=== PATIENT | male | born 2005 | race African-American/Black ===

== ENCOUNTER 2023-12-04 19:44 | Emergency (ER) | payer SELFPAY ==
[~2023-12-04] VITALS: Ht 182.9 cm; Wt 101.0 kg
[2023-12-04 20:13] VITALS: O2SAT 98
[2023-12-04] MEDS: RIVAROXABAN 15 MG TABLET PO STA (22:16)
[2023-12-04] MEDS ORDERED: XAR15 MT (22:20)
[2023-12-04] MEDS ORDERED: RIVA20TA MT (22:20)
[2023-12-04 22:52] VITALS: BP 138/62; PULSE 95; RESP 16; TEMP 98.5
== END 2023-12-04 22:53 | disposition home or self-care (01) ==
LOC: ER 19:44
DX: I82.401 Acute embolism and thrombosis of unspecified deep veins of right lower extremity (principal)
CPT/HCPCS: 93971; 99284; Z7610 ×3

== ENCOUNTER 2023-12-23 20:05 | Emergency (ER) | payer MEDICAID, OTHER ==
[~2023-12-23] VITALS: Ht 182.9 cm; Wt 102.0 kg
[2023-12-23 20:13] VITALS: O2SAT 97
[2023-12-23 21:40] LABS: BASOPHILS % 0.6 % (0.0-2.0); HEMOGLOBIN. 15.2 g/dL (14.0-18.0); LYMPHOCYTES % 31.5 % (20.0-50.0); MEAN CORPUSCULAR HGB CONC 32.9 g/dL (31.0-37.0); MEAN CORPUSCULAR VOLUME 91.3 fL (80.0-94.0); MEAN PLATELET VOLUME 9.8 fl (7.4-10.4); MONOCYTES % 6.6 % (2.0-8.0); NEUTROPHILS % 59.3 % (40.0-76.0); PLATELET 210 x1000/uL (130-400); RED BLOOD CELL COUNT 5.04 mill/uL (4.7-6.1); RED CELL DISTRIBUTION WIDTH 13.1 % (11.6-14.6); WHITE BLOOD COUNT 6.4 x1000/uL (4.5-11.0)
[2023-12-23 21:46] LABS: CHLORIDE 107 mEq/L (98-107); POTASSIUM 4.1 mEq/L (3.5-5.1); SODIUM 140 mEq/L (136-145)
[2023-12-23 21:47] LABS: CALCIUM 9.5 mg/dL (8.7-10.4); CARBON DIOXIDE 29 mEq/L (21-32)
[2023-12-23 21:52] LABS: CREATININE 0.8 mg/dL (0.6-1.3); GLUCOSE 84 mg/dL (70-105)
[2023-12-23 21:53] LABS: TROPONIN I HIGH SENSITIVITY < 4 ng/L (3.0-53); UREA NITROGEN BLOOD < 5 mg/dL (9-23)
[2023-12-23 21:55] LABS: D-DIMER < 0.19 mg/L FEU (<0.50); INR 0.9; PROTHROMBIN TIME 10.5 sec (9.6-11.0)
[2023-12-23 22:39] LABS: CLARITY URINE CLEAR (CLEAR); COLOR URINE YELLOW (YELLOW); GLUCOSE URINE NEGATIVE (NEGATIVE); KETONES URINE NEGATIVE (NEGATIVE); LEUKOCYTE ESTERASE URINE NEGATIVE (NEGATIVE); NITRITE URINE NEGATIVE (NEGATIVE); OCCULT BLOOD URINE NEGATIVE (NEGATIVE); PH URINE 7.5 (4.5-8.0); PROTEIN URINE NEGATIVE (NEGATIVE); SPECIFIC GRAVITY URINE 1.021 (1.005-1.030); UROBILINOGEN URINE 0.2 E.U./dL (0.2-1.0)
[2023-12-23 22:52] VITALS: TEMP 98.2
[2023-12-24 00:52] VITALS: BP 124/83; PULSE 73; RESP 18
[2023-12-24] MEDS ORDERED: APIX5TAB MT (02:00)
== END 2023-12-24 02:14 | disposition home or self-care (01) ==
LOC: ER 20:05
DX: R06.02 Shortness of breath (principal); F19.90 Other psychoactive substance use, unspecified, uncomplicated; I82.499 Acute embolism and thrombosis of other specified deep vein of unspecified lower extremity
CPT/HCPCS: 36415; 71045; 80048; 81003; 83880; 84484; 85025; 85379; 93005; 93971; 99285

== ENCOUNTER 2023-12-25 19:55 | Emergency (ER) | payer MEDICAID ==
[~2023-12-25] VITALS: Ht 182.9 cm; Wt 101.0 kg
[~2023-12-25 19:55] MED LIST: APIX5TAB MT
[2023-12-25 20:27] VITALS: BP 145/76; PULSE 76; RESP 18; TEMP 98.7; O2SAT 98
== END 2023-12-25 23:28 | disposition home or self-care (01) ==
LOC: ER 19:55
DX: M79.604 Pain in right leg (principal)
CPT/HCPCS: 93971; 99284; Z7610

== ENCOUNTER 2024-04-08 16:05 | Emergency (ER) | payer SELFPAY ==
[~2024-04-08] VITALS: Ht 182.9 cm; Wt 70.0 kg
[2024-04-08 16:09] VITALS: O2SAT 97
[2024-04-08 16:17] VITALS: BP 124/64; PULSE 75; RESP 16; TEMP 98.3; O2SAT 95
[2024-04-08] MEDS: BACITRACIN ZINC OINT UDPKT TOP ONE (17:15)
[2024-04-08] MEDS: LIDOCAINE HCL/PF 1% 10 MG/ML 5ML VIAL INFIL ONE (19:06)
== END 2024-04-08 19:15 | disposition home or self-care (01) ==
LOC: ER 16:05
DX: S61.011A Laceration without foreign body of right thumb without damage to nail, initial encounter (principal); Z79.01 Long term (current) use of anticoagulants; W26.8XXA Contact with other sharp object(s), not elsewhere classified, initial encounter; Y93.89 Activity, other specified; Y92.89 Other specified places as the place of occurrence of the external cause; Y99.8 Other external cause status
CPT/HCPCS: 99282; 12001; J3490